=== PATIENT | female | born 1990 | race Caucasian/White ===

== ENCOUNTER 2019-03-21 14:41 | Emergency (ER) | payer MEDICARE ==
[2019-03-21 14:53] VITALS: BP 136/92; Wt 90.9 kg
[2019-03-21] MEDS ORDERED: IBUPROFEN800 MG PO (15:46)
[2019-03-21] MEDS ORDERED: ACETAMINOPHEN500 M1 PO (15:46)
== END 2019-03-21 15:50 | disposition home or self-care (01) ==
LOC: D.ER 14:41
DX: S93.402A Sprain of unspecified ligament of left ankle, initial encounter (principal); X58.XXXA Exposure to other specified factors, initial encounter